=== PATIENT | male | born 1940 | race Caucasian/White ===

== ENCOUNTER 2020-08-18 07:25 | Inpatient (IN) ==
[2020-08-18] MEDS ORDERED: ALUM/MAG/SIMETH/LIDO VISC 1:1 30 ML BOTTLE PO STA (08:22)
[2020-08-18] MEDS ORDERED: ASPIRIN 325 MG TABLET PO STA (08:22)
[2020-08-18 09:04] LABS: Basophils % 0.5 % (0.0-0.8); Hematocrit 38.2 VOL% (42.0-52.0); Hemoglobin 13.2 GM/DL (14.0-18.0); Immature Granulocytes % 0.3 %; Immature Granulocytes Absolute 0.02 #; Lymphocytes # 1.6 10*3/uL (1.4-4.0); Lymphocytes % 26.8 % (21.2-54.2); Mean Corpuscular HGB Conc 34.6 GM/DL (32-36); Mean Corpuscular Volume 87.4 FL (87-102); Monocytes % 12.8 % (1.7-12.7); Neutrophils % 59.6 % (38.7-73.9); Platelet Count 188 T/CUMM (130-400); Red Blood Count 4.37 MC/CUMM (3.8-5.5); Red Cell Distribution Width 13.9 % (9.3-17.3)
[2020-08-18 09:16] LABS: Partial Thromboplastin Time 30.4 SECS (23.9-33.8)
[2020-08-18 09:27] LABS: Albumin 2.9 G/DL (3.4-5.0); Bilirubin,Total 0.4 MG/DL (0.2-1.0); Calcium 7.6 MG/DL (8.5-10.1); Osmolality,Calculated 282.1 MOS/KG (273-304); Total Protein 5.7 G/DL (6.4-8.3)
[2020-08-18] MEDS ORDERED: NITROGLYCERIN 2% OINT 1 INCH/GM PACK TOP STA (09:56)
[2020-08-18] MEDS ORDERED: ENOXAPARIN 80 MG/0.8 ML SYRINGE SUBCUT STA (09:56)
[2020-08-18] MEDS ORDERED: MORPHINE 4 MG/1 ML VIAL IV PRN (10:08)
[2020-08-18] MEDS ORDERED: ONDANSETRON 4 MG/2 ML VIAL IV PRN (10:08)
[2020-08-18] MEDS ORDERED: hydrALAZINE 20 MG/1 ML VIAL IV PRN (10:08)
[2020-08-18] MEDS ORDERED: guaiFENesin/DM ER 600-30 MG TABLET PO PRN (10:08)
[2020-08-18] MEDS ORDERED: MAGNESIUM SULF RIDER 4 GM in PREMIX 1 EACH IV PRN (10:08)
[2020-08-18] MEDS ORDERED: PROMETHAZINE 25 MG TABLET PO PRN (10:08)
[2020-08-18] MEDS ORDERED: diphenhydrAMINE CAP 25 MG CAPSULE PO PRN (10:08)
[2020-08-18] MEDS ORDERED: DOCUSATE SODIUM 100 MG CAPSULE PO PRN (10:08)
[2020-08-18] MEDS ORDERED: ZALEPLON 5 MG CAPSULE PO PRN (10:08)
[2020-08-18] MEDS ORDERED: MAGNESIUM SULF RIDER 2 GM in PREMIX 1 EACH IV PRN ×2 (10:08→12:14)
[2020-08-18] MEDS ORDERED: ACETAMINOPHEN 325 MG TABLET PO PRN (10:08)
[2020-08-18] MEDS ORDERED: POTASSIUM CHLORIDE RIDER 10 MEQ in PREMIX 1 EACH IV PRN (12:14)
[2020-08-18] MEDS ORDERED: diphenhydrAMINE CAP 25 MG CAPSULE PO ONE (12:14)
[2020-08-18] MEDS ORDERED: DIAZEPAM 5 MG TABLET PO ONE (12:14)
[2020-08-18] MEDS: ALBUTEROL 2.5 MG/3 ML NEB RESP TX SCH ×2 (13:11→20:14)
[2020-08-18] MEDS ORDERED: LIDOCAINE 1% 20 ML VIAL ONE (14:11)
[2020-08-18] MEDS ORDERED: MIDAZOLAM 2 MG/2 ML VIAL ONE (14:11)
[2020-08-18] MEDS ORDERED: fentaNYL 100 MCG/2 ML VIAL ONE (14:12)
[2020-08-18] MEDS ORDERED: ONDANSETRON 4 MG/2 ML VIAL ONE (14:56)
[2020-08-18] MEDS ORDERED: HEPARIN 5,000 UNIT/1 ML VIAL ONE (15:08)
[2020-08-18] MEDS ORDERED: TIROFIBAN 5,000 MCG/100 ML PREMIX IV ONE (15:10)
[2020-08-18] MEDS ORDERED: TIROFIBAN 5,000 MCG/100 ML PREMIX IV SCH (15:16)
[2020-08-18] MEDS ORDERED: HEPARIN/NACL 0.9% 2 UNITS/ML 0 ML IV ONE (15:18)
[2020-08-18] MEDS ORDERED: TICAGRELOR 90 MG TABLET ONE (15:31)
[2020-08-18] MEDS ORDERED: SODIUM CHLORIDE 0.9% 1,000 ML IV SCH (16:30)
[2020-08-18] MEDS ORDERED: traMADol 50 MG TABLET PO ONE (18:09)
[2020-08-18] MEDS ORDERED: GABAPENTIN 100 MG CAPSULE PO ONE (18:10)
[2020-08-18 18:25] LABS: CKMB % 17.1 %
[2020-08-18 18:31] LABS: Troponin I 4.72 NG/ML (0.00-0.045)
[2020-08-18] MEDS: SODIUM CHLORIDE 0.9% 1,000 ML IV SCH (20:53)
[2020-08-18] MEDS ORDERED: INFLUENZA VIRUS VACCINE 0.5 ML SYRINGE IM ONE (21:00)
[2020-08-18] MEDS ORDERED: GABAPENTIN 100 MG CAPSULE PO SCH (22:00)
[2020-08-18] MEDS: TICAGRELOR 90 MG TABLET PO SCH (22:27)
[2020-08-19 00:35] LABS: Basophils % 0.4 % (0.0-0.8); Hematocrit 37.2 VOL% (42.0-52.0); Hemoglobin 12.5 GM/DL (14.0-18.0); Immature Granulocytes % 0.5 %; Immature Granulocytes Absolute 0.04 #; Lymphocytes # 1.3 10*3/uL (1.4-4.0); Lymphocytes % 16.1 % (21.2-54.2); Mean Corpuscular HGB Conc 33.6 GM/DL (32-36); Mean Corpuscular Volume 89.4 FL (87-102); Mean Platelet Volume 9.8 FL (9.6-12.0); Monocytes % 9.6 % (1.7-12.7); Neutrophils % 73.4 % (38.7-73.9); Platelet Count 171 T/CUMM (130-400); Red Blood Count 4.16 MC/CUMM (3.8-5.5); Red Cell Distribution Width 14.1 % (9.3-17.3); White Blood Count 7.7 T/CUMM (4-12)
[2020-08-19 00:57] LABS: CKMB % 15.3 %; Calcium 8.7 MG/DL (8.5-10.1); Osmolality,Calculated 276.5 MOS/KG (273-304); Risk Ratio 3.21; VLDL CHOLESTEROL 20.2 MG/DL
[2020-08-19 00:58] LABS: Troponin I 5.63 NG/ML (0.00-0.045)
[2020-08-19] MEDS: ALBUTEROL 2.5 MG/3 ML NEB RESP TX SCH ×4 (01:24→19:15)
[2020-08-19] MEDS: SODIUM CHLORIDE 0.9% 1,000 ML IV SCH (03:21)
[2020-08-19 08:53] LABS: CKMB % 13.3 %
[2020-08-19 08:57] LABS: Troponin I 4.84 NG/ML (0.00-0.045)
[2020-08-19] MEDS ORDERED: ERGOCALCIFEROL 50,000 UNIT CAPSULE PO SCH (09:00)
[2020-08-19] MEDS ORDERED: LOSARTAN 50 MG TABLET PO SCH (09:00)
[2020-08-19] MEDS: TAMSULOSIN 0.4 MG CAPSULE PO SCH (09:31)
[2020-08-19] MEDS: FINASTERIDE 5 MG TABLET PO SCH (09:31)
[2020-08-19] MEDS: LEVOTHYROXINE 137 MCG TABLET PO SCH (09:31)
[2020-08-19] MEDS: TICAGRELOR 90 MG TABLET PO SCH ×2 (09:31→21:16)
[2020-08-19] MEDS: CITALOPRAM 20 MG TABLET PO SCH (09:32)
[2020-08-19] MEDS: ASPIRIN EC 81 MG TABLET PO SCH (09:32)
[2020-08-19] MEDS: PANTOPRAZOLE 40 MG TABLET PO SCH (09:32)
[2020-08-19] MEDS: traMADol 50 MG TABLET PO PRN ×2 (09:36→14:15)
[2020-08-19] MEDS ORDERED: SODIUM CHLORIDE 0.9% 1,000 ML IV ONE (11:33)
[2020-08-19 12:53] LABS: Basophils % 0.4 % (0.0-0.8); Hematocrit 36.5 VOL% (42.0-52.0); Immature Granulocytes % 0.3 %; Immature Granulocytes Absolute 0.02 #; Lymphocytes # 1.1 10*3/uL (1.4-4.0); Lymphocytes % 15.1 % (21.2-54.2); Mean Corpuscular HGB Conc 32.9 GM/DL (32-36); Mean Corpuscular Volume 89.7 FL (87-102); Mean Platelet Volume 9.9 FL (9.6-12.0); Monocytes % 9.4 % (1.7-12.7); Neutrophils % 74.8 % (38.7-73.9); Platelet Count 160 T/CUMM (130-400); Red Blood Count 4.07 MC/CUMM (3.8-5.5); Red Cell Distribution Width 14.4 % (9.3-17.3); White Blood Count 7.1 T/CUMM (4-12)
[2020-08-19] MEDS: MIDODRINE 5 MG TABLET PO SCH ×3 (12:55→21:16)
[2020-08-19] MEDS ORDERED: KETOROLAC 30 MG/1 ML VIAL IV ONE (14:20)
[2020-08-20] MEDS: ALBUTEROL 2.5 MG/3 ML NEB RESP TX SCH (07:09)
[2020-08-20] MEDS ORDERED: CLOPIDOGREL 300 MG TABLET PO ONE (07:44)
[2020-08-20] MEDS ORDERED: CLOPIDOGREL 75 MG TABLET PO SCH (09:00)
[2020-08-20 09:02] VITALS: BP 100/65
[2020-08-20] MEDS: ASPIRIN EC 81 MG TABLET PO SCH (09:11)
[2020-08-20] MEDS: CITALOPRAM 20 MG TABLET PO SCH (09:11)
[2020-08-20] MEDS: TAMSULOSIN 0.4 MG CAPSULE PO SCH (09:11)
[2020-08-20] MEDS: LEVOTHYROXINE 137 MCG TABLET PO SCH (09:11)
[2020-08-20] MEDS: FINASTERIDE 5 MG TABLET PO SCH (09:11)
[2020-08-20] MEDS: MIDODRINE 5 MG TABLET PO SCH (09:12)
[2020-08-20] MEDS: PANTOPRAZOLE 40 MG TABLET PO SCH (09:12)
[2020-08-21] MEDS ORDERED: CLOPIDOGREL 75 MG TABLET PO SCH (09:00)
== END 2020-08-20 09:49 | disposition home or self-care (01) | DRG 247 ==
LOC: N.EDINP 07:25 → N.ED 07:25 → OBSVTOIN 10:08 → N.EDINP 14:20 → N.TELES 17:41
PROVIDERS: ADMIT Internal Medicine Cardiovascular Disease; ATTEND Internal Medicine Cardiovascular Disease
PROC: CLCCHCL (ICD-10-PCS; 2020-08-18 14:15)

== ENCOUNTER 2022-07-03 09:35 | Inpatient (IN) ==
[2022-07-03] MEDS ORDERED: ONDANSETRON 4 MG/2 ML VIAL IV STA (09:59)
[2022-07-03] MEDS ORDERED: fentaNYL 100 MCG/2 ML VIAL IV STA ×2 (09:59→11:12)
[2022-07-03 10:03] LABS: Basophils % 0.5 % (0.0-0.8); Eosinophils # 0.1 10*3/uL (0.0-0.87); Eosinophils % 1.4 % (0.00-10.9); Hematocrit 39.1 VOL% (42.0-52.0); Hemoglobin 13.5 GM/DL (14.0-18.0); Immature Granulocytes % 0.5 %; Immature Granulocytes Absolute 0.04 #; Lymphocytes # 1.5 10*3/uL (1.4-4.0); Lymphocytes % 19.6 % (21.2-54.2); Mean Corpuscular HGB Conc 34.5 GM/DL (32-36); Mean Corpuscular Volume 88.3 FL (87-102); Mean Platelet Volume 9.7 FL (9.6-12.0); Monocytes # 0.7 10*3/uL (0.11-0.8); Monocytes % 8.6 % (1.7-12.7); Neutrophils % 69.4 % (38.7-73.9); Platelet Count 178 T/CUMM (130-400); Red Blood Count 4.43 MC/CUMM (3.8-5.5); Red Cell Distribution Width 13.3 % (9.3-17.3); White Blood Count 7.7 T/CUMM (4-12)
[2022-07-03 10:17] LABS: PT Patient Result 10.7 SECS (10.1-12.1); Partial Thromboplastin Time 25.6 SECS (23.7-32.9)
[2022-07-03 10:28] LABS: Albumin 3.8 G/DL (3.4-5.0); Bilirubin,Total 0.7 MG/DL (0.20-1.00); Calcium 9.4 MG/DL (8.5-10.1); Osmolality,Calculated 284.3 MOS/KG (273-304); Total Protein 7.3 G/DL (6.4-8.2)
[2022-07-03] MEDS ORDERED: PROMETHAZINE INJ 12.5 MG in SODIUM CHLORIDE 0.9% 50 ML IV STA (10:42)
[2022-07-03] MEDS ORDERED: PROMETHAZINE 25 MG/1 ML VIAL ONE (11:00)
[2022-07-03] MEDS ORDERED: ONDANSETRON 4 MG/2 ML VIAL IV PRN (11:37)
[2022-07-03] MEDS ORDERED: HYDROmorphone 1 MG/1 ML SYRINGE IV PRN (11:37)
[2022-07-03] MEDS: SODIUM CHLORIDE 0.45% 1,000 ML IV SCH ×2 (12:09→23:00)
[2022-07-03] MEDS ORDERED: LOSARTAN 25 MG TABLET PO SCH (15:02)
[2022-07-03] MEDS ORDERED: amLODIPine 5 MG TABLET PO STA (15:06)
[2022-07-03] MEDS ORDERED: ENOXAPARIN 40 MG/0.4 ML SYRINGE SUBCUT STA (15:07)
[2022-07-03] MEDS ORDERED: ASPIRIN EC 81 MG TABLET PO ONE (15:07)
[2022-07-03] MEDS: PIPERACILLIN/TAZOBACTAM 3,375 MG in SODIUM CHLORIDE 0.9% 100 ML IV SCH ×2 (15:08→23:00)
[2022-07-03] MEDS: RANOLAZINE 500 MG TABLET PO SCH ×2 (15:25→23:00)
[2022-07-04 05:29] LABS: Basophils % 0.3 % (0.0-0.8); Eosinophils % 0.2 % (0.00-10.9); Hemoglobin 12.8 GM/DL (14.0-18.0); Immature Granulocytes % 0.6 %; Immature Granulocytes Absolute 0.09 #; Lymphocytes # 1.4 10*3/uL (1.4-4.0); Lymphocytes % 9.7 % (21.2-54.2); Mean Corpuscular HGB Conc 33.7 GM/DL (32-36); Mean Corpuscular Volume 90.3 FL (87-102); Mean Platelet Volume 10.1 FL (9.6-12.0); Monocytes # 1.4 10*3/uL (0.11-0.8); Neutrophils % 79.2 % (38.7-73.9); Platelet Count 180 T/CUMM (130-400); Red Blood Count 4.21 MC/CUMM (3.8-5.5); Red Cell Distribution Width 13.8 % (9.3-17.3)
[2022-07-04 05:40] LABS: Calcium 8.5 MG/DL (8.5-10.1); Osmolality,Calculated 274.8 MOS/KG (273-304); Potassium 3.6 MMOL/L (3.5-5.1)
[2022-07-04] MEDS: PIPERACILLIN/TAZOBACTAM 3,375 MG in SODIUM CHLORIDE 0.9% 100 ML IV SCH ×3 (06:20→23:00)
[2022-07-04] MEDS ORDERED: DIAZEPAM 5 MG TABLET PO ONE (07:55)
[2022-07-04] MEDS ORDERED: diphenhydrAMINE CAP 50 MG CAPSULE PO ONE (07:55)
[2022-07-04 08:02] LABS: Bilirubin,Urine Negative (Negative); Blood, Urine Negative (Negative); Glucose,Urine (UA) Negative (Negative); Ketones,Urine Negative (Negative); Nitrite,Urine Negative (Negative); Protein,Urine Negative (Negative); RBC,Urine 1 /HPF (0-4); Urine Appearance CLEAR (Clear); Urine Color Yellow (Yellow); Urine Specific Gravity 1.011 (1.001-1.035)
[2022-07-04] MEDS ORDERED: fentaNYL 100 MCG/2 ML VIAL ONE (08:52)
[2022-07-04] MEDS ORDERED: MIDAZOLAM 2 MG/2 ML VIAL ONE (08:52)
[2022-07-04] MEDS ORDERED: HEPARIN/NACL 0.9% 2 UNITS/ML 2,000 UNIT/1,000 ML BAG IV ONE (08:52)
[2022-07-04] MEDS ORDERED: LOSARTAN 50 MG TABLET PO SCH (09:00)
[2022-07-04] MEDS ORDERED: HEPARIN 5,000 UNIT/1 ML VIAL ONE (09:05)
[2022-07-04] MEDS ORDERED: NITROGLYCERIN DRIP 50 MG/250 ML BOTTLE IV ONE (09:20)
[2022-07-04] MEDS ORDERED: TICAGRELOR 90 MG TABLET ONE (09:29)
[2022-07-04] MEDS: SODIUM CHLORIDE 0.45% 1,000 ML IV SCH ×3 (11:29→17:14)
[2022-07-04] MEDS: RANOLAZINE 500 MG TABLET PO SCH ×2 (11:34→20:41)
[2022-07-04] MEDS: EZETIMIBE 10 MG TABLET PO SCH (11:34)
[2022-07-04] MEDS: LOSARTAN 25 MG TABLET PO SCH (11:34)
[2022-07-04] MEDS: ASPIRIN EC 81 MG TABLET PO SCH (11:34)
[2022-07-04] MEDS: TAMSULOSIN 0.4 MG CAPSULE PO SCH (14:10)
[2022-07-04] MEDS: FINASTERIDE 5 MG TABLET PO SCH (14:10)
[2022-07-04] MEDS ORDERED: POTASSIUM CHLORIDE 10 MEQ TABLET PO ONE (14:13)
[2022-07-04] MEDS: HYDROmorphone 1 MG/1 ML SYRINGE IV PRN ×2 (14:30→20:51)
[2022-07-04] MEDS: TICAGRELOR 90 MG TABLET PO SCH (20:41)
[2022-07-04] MEDS: ACETAMINOPHEN 325 MG TABLET PO PRN (20:42)
[2022-07-05] MEDS: SODIUM CHLORIDE 0.45% 1,000 ML IV SCH ×2 (01:38→07:47)
[2022-07-05 01:57] LABS: Basophils % 0.1 % (0.0-0.8); Eosinophils % 0.1 % (0.00-10.9); Hematocrit 35.3 VOL% (42.0-52.0); Hemoglobin 11.9 GM/DL (14.0-18.0); Immature Granulocytes % 1.1 %; Immature Granulocytes Absolute 0.16 #; Mean Corpuscular HGB Conc 33.7 GM/DL (32-36); Mean Corpuscular Volume 90.1 FL (87-102); Mean Platelet Volume 9.4 FL (9.6-12.0); Monocytes # 1.6 10*3/uL (0.11-0.8); Monocytes % 10.8 % (1.7-12.7); Neutrophils % 80.9 % (38.7-73.9); Platelet Count 145 T/CUMM (130-400); Red Blood Count 3.92 MC/CUMM (3.8-5.5); Red Cell Distribution Width 13.9 % (9.3-17.3); White Blood Count 14.5 T/CUMM (4-12)
[2022-07-05 02:13] LABS: Calcium 8.7 MG/DL (8.5-10.1); Osmolality,Calculated 267.4 MOS/KG (273-304); Potassium 3.8 MMOL/L (3.5-5.1)
[2022-07-05 02:17] LABS: Risk Ratio 2.25; VLDL Cholesterol 11.6 MG/DL
[2022-07-05] MEDS: HYDROmorphone 1 MG/1 ML SYRINGE IV PRN ×2 (04:20→07:54)
[2022-07-05 07:06] LABS: Albumin 2.8 G/DL (3.4-5.0); Bilirubin,Direct 1.49 MG/DL (0.0-0.20); Bilirubin,Indirect 1.2 MG/DL (0.0-1.0); Bilirubin,Total 2.7 MG/DL (0.20-1.00); Total Protein 6.3 G/DL (6.4-8.2)
[2022-07-05] MEDS: PIPERACILLIN/TAZOBACTAM 3,375 MG in SODIUM CHLORIDE 0.9% 100 ML IV SCH ×3 (07:46→21:00)
[2022-07-05] MEDS: EZETIMIBE 10 MG TABLET PO SCH (08:48)
[2022-07-05] MEDS: FINASTERIDE 5 MG TABLET PO SCH (08:48)
[2022-07-05] MEDS: TICAGRELOR 90 MG TABLET PO SCH ×2 (08:48→21:00)
[2022-07-05] MEDS: LOSARTAN 25 MG TABLET PO SCH (08:49)
[2022-07-05] MEDS: RANOLAZINE 500 MG TABLET PO SCH ×2 (08:49→21:00)
[2022-07-05] MEDS: ASPIRIN EC 81 MG TABLET PO SCH (08:49)
[2022-07-05] MEDS: TAMSULOSIN 0.4 MG CAPSULE PO SCH (08:52)
[2022-07-05] MEDS ORDERED: MAGNESIUM SULF RIDER 2 GM/50 ML PREMIX IV ONE (10:36)
[2022-07-05] MEDS ORDERED: POTASSIUM CHLORIDE 20 MEQ TABLET PO ONE (10:36)
[2022-07-05] MEDS ORDERED: HYDROmorphone 1 MG/1 ML SYRINGE IV PRN (15:47)
[2022-07-05] MEDS: CELECOXIB 100 MG CAPSULE PO SCH (23:52)
[2022-07-06 04:05] LABS: Basophils % 0.2 % (0.0-0.8); Eosinophils # 0.1 10*3/uL (0.0-0.87); Eosinophils % 0.7 % (0.00-10.9); Hematocrit 32.8 VOL% (42.0-52.0); Hemoglobin 11.3 GM/DL (14.0-18.0); Immature Granulocytes % 1.3 %; Immature Granulocytes Absolute 0.16 #; Lymphocytes % 8.4 % (21.2-54.2); Mean Corpuscular HGB Conc 34.5 GM/DL (32-36); Mean Corpuscular Volume 89.4 FL (87-102); Mean Platelet Volume 10.1 FL (9.6-12.0); Monocytes # 1.3 10*3/uL (0.11-0.8); Monocytes % 10.6 % (1.7-12.7); Neutrophils % 78.8 % (38.7-73.9); Platelet Count 149 T/CUMM (130-400); Red Blood Count 3.67 MC/CUMM (3.8-5.5); Red Cell Distribution Width 13.5 % (9.3-17.3)
[2022-07-06 04:22] LABS: Calcium 8.8 MG/DL (8.5-10.1); Osmolality,Calculated 265.5 MOS/KG (273-304); Potassium 3.6 MMOL/L (3.5-5.1)
[2022-07-06 04:25] LABS: Albumin 2.4 G/DL (3.4-5.0); Bilirubin,Total 1.6 MG/DL (0.20-1.00); Calcium 8.5 MG/DL (8.5-10.1); Osmolality,Calculated 270.1 MOS/KG (273-304); Potassium 3.7 MMOL/L (3.5-5.1); Total Protein 5.9 G/DL (6.4-8.2)
[2022-07-06] MEDS: PIPERACILLIN/TAZOBACTAM 3,375 MG in SODIUM CHLORIDE 0.9% 100 ML IV SCH ×3 (06:11→21:13)
[2022-07-06] MEDS: LEVOTHYROXINE 137 MCG TABLET PO SCH (06:11)
[2022-07-06] MEDS: RANOLAZINE 500 MG TABLET PO SCH ×2 (09:13→21:06)
[2022-07-06] MEDS: TICAGRELOR 90 MG TABLET PO SCH ×2 (09:13→21:09)
[2022-07-06] MEDS: LOSARTAN 25 MG TABLET PO SCH (09:13)
[2022-07-06] MEDS: TAMSULOSIN 0.4 MG CAPSULE PO SCH (09:13)
[2022-07-06] MEDS: CITALOPRAM 20 MG TABLET PO SCH (09:13)
[2022-07-06] MEDS: EZETIMIBE 10 MG TABLET PO SCH (09:13)
[2022-07-06] MEDS: OMEGA 3 ACID ETHYL ESTERS 1 GM CAPSULE PO SCH (09:14)
[2022-07-06] MEDS: ASPIRIN EC 81 MG TABLET PO SCH (09:14)
[2022-07-06] MEDS: FINASTERIDE 5 MG TABLET PO SCH (09:14)
[2022-07-06] MEDS: CELECOXIB 100 MG CAPSULE PO SCH (11:35)
[2022-07-06] MEDS: CELECOXIB 200 MG CAPSULE PO SCH (21:06)
[2022-07-07 05:00] LABS: Osmolality,Calculated 270.2 MOS/KG (273-304); Potassium 3.6 MMOL/L (3.5-5.1)
[2022-07-07] MEDS: PIPERACILLIN/TAZOBACTAM 3,375 MG in SODIUM CHLORIDE 0.9% 100 ML IV SCH ×3 (06:26→21:37)
[2022-07-07] MEDS: LEVOTHYROXINE 137 MCG TABLET PO SCH (06:26)
[2022-07-07] MEDS: CITALOPRAM 20 MG TABLET PO SCH (09:16)
[2022-07-07] MEDS: RANOLAZINE 500 MG TABLET PO SCH ×2 (09:16→21:33)
[2022-07-07] MEDS: TAMSULOSIN 0.4 MG CAPSULE PO SCH (09:16)
[2022-07-07] MEDS: ASPIRIN EC 81 MG TABLET PO SCH (09:16)
[2022-07-07] MEDS: LOSARTAN 25 MG TABLET PO SCH (09:16)
[2022-07-07] MEDS: EZETIMIBE 10 MG TABLET PO SCH (09:16)
[2022-07-07] MEDS: TICAGRELOR 90 MG TABLET PO SCH ×2 (09:16→21:32)
[2022-07-07] MEDS: OMEGA 3 ACID ETHYL ESTERS 1 GM CAPSULE PO SCH (09:16)
[2022-07-07] MEDS: FINASTERIDE 5 MG TABLET PO SCH (09:22)
[2022-07-07] MEDS ORDERED: ENOXAPARIN 40 MG/0.4 ML SYRINGE SUBCUT ONE (11:29)
[2022-07-07 11:30] LABS: Basophils % 0.3 % (0.0-0.8); Eosinophils # 0.2 10*3/uL (0.0-0.87); Hematocrit 31.8 VOL% (42.0-52.0); Hemoglobin 10.8 GM/DL (14.0-18.0); Immature Granulocytes % 0.4 %; Immature Granulocytes Absolute 0.04 #; Lymphocytes # 0.9 10*3/uL (1.4-4.0); Lymphocytes % 8.6 % (21.2-54.2); Mean Corpuscular Volume 90.3 FL (87-102); Mean Platelet Volume 10.1 FL (9.6-12.0); Monocytes # 1.2 10*3/uL (0.11-0.8); Monocytes % 11.3 % (1.7-12.7); Neutrophils % 77.4 % (38.7-73.9); Platelet Count 168 T/CUMM (130-400); Red Blood Count 3.52 MC/CUMM (3.8-5.5); Red Cell Distribution Width 13.6 % (9.3-17.3); White Blood Count 10.5 T/CUMM (4-12)
[2022-07-07] MEDS: CELECOXIB 200 MG CAPSULE PO SCH (21:33)
[2022-07-08] MEDS: ACETAMINOPHEN 325 MG TABLET PO PRN (00:16)
[2022-07-08 05:56] LABS: Basophils % 0.3 % (0.0-0.8); Eosinophils # 0.3 10*3/uL (0.0-0.87); Eosinophils % 3.1 % (0.00-10.9); Hematocrit 31.7 VOL% (42.0-52.0); Hemoglobin 10.8 GM/DL (14.0-18.0); Immature Granulocytes % 0.8 %; Immature Granulocytes Absolute 0.08 #; Lymphocytes % 9.4 % (21.2-54.2); Mean Corpuscular HGB Conc 34.1 GM/DL (32-36); Mean Corpuscular Volume 89.8 FL (87-102); Mean Platelet Volume 9.5 FL (9.6-12.0); Monocytes # 1.3 10*3/uL (0.11-0.8); Monocytes % 12.7 % (1.7-12.7); Neutrophils % 73.7 % (38.7-73.9); Platelet Count 188 T/CUMM (130-400); Red Blood Count 3.53 MC/CUMM (3.8-5.5); Red Cell Distribution Width 13.4 % (9.3-17.3); White Blood Count 10.5 T/CUMM (4-12)
[2022-07-08 06:16] LABS: Calcium 9.1 MG/DL (8.5-10.1); Potassium 3.9 MMOL/L (3.5-5.1)
[2022-07-08] MEDS: LEVOTHYROXINE 137 MCG TABLET PO SCH (06:24)
[2022-07-08] MEDS: PIPERACILLIN/TAZOBACTAM 3,375 MG in SODIUM CHLORIDE 0.9% 100 ML IV SCH (06:24)
[2022-07-08] MEDS ORDERED: BISACODYL 10 MG SUPP RECTAL ONE ×2 (07:38)
[2022-07-08 08:32] VITALS: BP 113/65
[2022-07-08] MEDS ORDERED: CLOPIDOGREL 75 MG TABLET PO ONE ×2 (08:58→09:30)
[2022-07-08] MEDS ORDERED: CLOPIDOGREL 75 MG TABLET PO SCH (09:00)
[2022-07-08] MEDS: CITALOPRAM 20 MG TABLET PO SCH (09:13)
[2022-07-08] MEDS: ASPIRIN EC 81 MG TABLET PO SCH (09:13)
[2022-07-08] MEDS: RANOLAZINE 500 MG TABLET PO SCH (09:14)
[2022-07-08] MEDS: TAMSULOSIN 0.4 MG CAPSULE PO SCH (09:14)
[2022-07-08] MEDS: EZETIMIBE 10 MG TABLET PO SCH (09:14)
[2022-07-08] MEDS: FINASTERIDE 5 MG TABLET PO SCH (09:14)
[2022-07-08] MEDS: LOSARTAN 25 MG TABLET PO SCH (09:14)
[2022-07-08] MEDS: OMEGA 3 ACID ETHYL ESTERS 1 GM CAPSULE PO SCH (09:14)
== END 2022-07-08 10:53 | disposition home or self-care (01) | DRG 247 ==
LOC: EDUNIT# → EDBD → N.ED 09:35 → N.EDINP 09:35 → N.TELES 23:25
PROVIDERS: ADMIT Family Medicine; ATTEND Family Medicine
PROC: CLCCHCL (ICD-10-PCS; 2022-07-04 09:15)